=== PATIENT | female | born 1970 | race American Indian/Alaskan Native ===

== ENCOUNTER 2017-09-13 12:10 | Emergency (ER) | payer OTHER ==
[~2017-09-13] VITALS: Ht 154.9 cm; Wt 81.7 kg
[~2017-09-13 12:10] MED LIST: CALCIUM CARBON200 MG PO; DIPHENHYDRAMINE25 MG PO; FERROUS SULFAT325 MG PO; FUROSEMIDE20 MG PO; GUAIATUSSIN AC118 ML PO; K-TAB10 MEQ PO; LASIX20 MG PO; METOPROLOL TART25 MG PO; POTASSIUM CHLO10 MEQ PO; VITAMIN D1000 UNI1 PO; ZESTRIL2.5 MG PO; ZITHROMAX250 MG PO
[2017-09-13] MEDS ORDERED: SYNTHROID50 MCG PO (12:31)
--- NOTE | 2017-09-13 20:29 | EKG ---
[facility] [address] [facility] [place] [address] Signed Normal sinus rhythm Left axis deviation Possible Anterior infarct , age undetermined Prolonged QT Abnormal ECG No previous ECGs available Confirmed by MIGDALIA RASHEED MD ([id number] on 09/13/2017 8:29:26 PM Electronically Signed By: MIGDALIA RASHEED MD 09/13/17 2029 PATIENT NAME: CLARE SAMPSON Electrocardiogram DATE OF : 68 PHYSICIAN: MIGDALIA RASHEED MD REPORT #: [id number] REPORT IS CONFIDENTIAL AND NOT TO BE RELEASED WITHOUT AUTHORIZATION
== END 2017-09-13 14:21 | disposition home or self-care (01) ==
LOC: ED 12:10
DX: I50.9 Heart failure, unspecified (principal); Z90.49 Acquired absence of other specified parts of digestive tract; Z91.011 Allergy to milk products; Z79.899 Other long term (current) drug therapy
CPT/HCPCS: 71046; 80048; 81001; 83880; 84484; 85025; 93005; 93010; 99283